=== PATIENT | female | born 1985 | race Caucasian/White ===

== ENCOUNTER 2016-11-12 12:34 | Emergency (ER) | payer OTHER ==
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
[2016-11-12 17:20] LABS: BILIRUBIN,URINE NEGATIVE (NEGATIVE)
[2016-11-12 17:28] LABS: HCG UR QUAL NEGATIVE; UA w/ MICROSCOPIC CHARGE YES
[2016-11-12 17:29] LABS: UR CULTURE IF IND NOT INDICATED; WBC,URINE 0-3 /HPF (0-5)
[2016-11-12 18:22] VITALS: BP 136/66
== END 2016-11-12 18:23 | disposition home or self-care (01) ==
LOC: ED 12:34
DX: T76.21XA Adult sexual abuse, suspected, initial encounter (principal); Z59.0 Homelessness
CPT/HCPCS: 81001; 81003; 81025; 87086; 87491; 87591; 99283

== ENCOUNTER 2017-01-07 13:30 | Outpatient (CLI) | payer MEDICAID | END 2017-01-07 13:31 | disposition critical access hospital (66) | LOC: EMS 13:30 | PROVIDERS: ATTEND Surgery | DX: S80.212A Abrasion, left knee, initial encounter (principal); S40.021A Contusion of right upper arm, initial encounter; Y09 Assault by unspecified means | CPT/HCPCS: A0425; A0429 ==

== ENCOUNTER 2017-03-12 14:55 | Outpatient (CLI) | payer MEDICAID | END 2017-03-12 14:56 | disposition critical access hospital (66) | LOC: EMS 14:55 | PROVIDERS: ATTEND Surgery | DX: R07.9 Chest pain, unspecified (principal); R11.0 Nausea | CPT/HCPCS: A0425; A0427 ==

== ENCOUNTER 2017-03-12 15:39 | Emergency (ER) | payer MEDICAID ==
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
[2017-03-12 16:30] VITALS: BP 133/79
[2017-03-12 16:56] LABS: HCG,QUALITATIVE BLOOD NEGATIVE
--- NOTE | 2017-03-12 17:51 | XRAY Report ---
EXAM: CHEST RADIOGRAPHY EXAM DATE: 03/12/2017 05:21 PM. CLINICAL HISTORY: Chest pain. COMPARISON: 01/07/2017. TECHNIQUE: 2 views. FINDINGS: Lungs/Pleura: Stable calcified granuloma, right upper lobe, otherwise no focal opacities evident. No pleural effusion. No pneumothorax. Normal volumes. Mediastinum: Heart and mediastinal contours are unremarkable. Other: No bony abnormalities identified. IMPRESSION: Stable right upper lobe calcified granuloma, otherwise unremarkable 2-view chest radiogra phy. [facility] Referring Provider Line: [phone] SITE ID: [id number]
== END 2017-03-12 18:16 | disposition home or self-care (01) ==
LOC: EDUNIT# → ED 15:39
DX: R07.9 Chest pain, unspecified (principal)
CPT/HCPCS: 36415; 71020; 84703; 93005; 99283; 99284

== ENCOUNTER 2017-03-20 19:29 | Outpatient (CLI) | payer MEDICAID | END 2017-03-20 19:30 | disposition EMS.NT | LOC: EMS 19:29 | PROVIDERS: ATTEND Surgery | DX: R68.84 Jaw pain (principal) ==

== ENCOUNTER 2017-07-31 19:18 | Outpatient (CLI) | payer MEDICAID | END 2017-07-31 19:19 | disposition EMS.NT | LOC: EMS 19:18 | PROVIDERS: ATTEND Surgery | DX: S61.214A Laceration without foreign body of right ring finger without damage to nail, initial encounter (principal); X99.8XXA Assault by other sharp object, initial encounter; Y92.59 Other trade areas as the place of occurrence of the external cause ==

== ENCOUNTER 2017-10-26 10:24 | Outpatient (CLI) | payer MEDICAID ==
--- NOTE | 2017-10-26 11:11 | XRAY Report ---
Procedure Date: 10/26/2017 Accession Number: [id number] / [id number] Procedure: XRN - Toe(s) LT CPT Code: FULL RESULT: EXAM: LEFT TOE RADIOGRAPHY EXAM DATE: 10/26/2017 10:49 AM. CLINICAL HISTORY: Painful toe. COMPARISON: None. TECHNIQUE: 3 views. FINDINGS: Bones: Normal. No fracture or bone lesion. Joints: Normal. No subluxations. Soft Tissues: Normal. No soft tissue swelling. IMPRESSION: Normal toe radiography. [facility]
== END 2017-10-26 10:25 | disposition home or self-care (01) ==
LOC: DI.N 10:24
PROVIDERS: ATTEND Nurse Practitioner
DX: M79.675 Pain in left toe(s) (principal)
CPT/HCPCS: 73660

== ENCOUNTER 2019-02-02 18:38 | Emergency (ER) | payer MEDICAID ==
[2019-02-02 18:48] VITALS: BP 140/90
--- NOTE | 2019-02-02 19:52 | XRAY Report ---
Reason: thumb injury Procedure Date: 02/02/2019 Accession Number: [id number] / [id number] Procedure: XR - Finger(s) LT CPT Code: Final Report FULL RESULT: EXAM: LEFT 1ST DIGIT RADIOGRAPHY EXAM DATE: 02/02/2019 07:28 PM. CLINICAL HISTORY: Thumb injury. COMPARISON: None. TECHNIQUE: 3 views. FINDINGS: Bones: No acute fracture. No suspicious osseous lesion. Joints: No significant joint space narrowing. No dislocation. Other: None. IMPRESSION: No acute osseous abnormality. [facility]
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
== END 2019-02-02 20:23 | disposition home or self-care (01) ==
LOC: ED 18:38
DX: S63.642A Sprain of metacarpophalangeal joint of left thumb, initial encounter (principal); X58.XXXA Exposure to other specified factors, initial encounter; Y93.89 Activity, other specified
CPT/HCPCS: 73140; 99281; 99283

== ENCOUNTER 2019-05-09 11:00 | Outpatient (CLI) | payer MEDICAID | END 2019-05-09 11:01 | disposition home or self-care (01) | LOC: DI.N 11:00 | PROVIDERS: ATTEND Family Medicine | DX: Z53.9 Procedure and treatment not carried out, unspecified reason (principal) ==

== ENCOUNTER 2019-05-24 07:10 | Outpatient (CLI) | payer MEDICAID | END 2019-05-24 07:11 | disposition critical access hospital (66) | LOC: EMS 07:10 | PROVIDERS: ATTEND Surgery | DX: R45.851 Suicidal ideations (principal) | CPT/HCPCS: A0425; A0429; A0999 ==

== ENCOUNTER 2019-05-24 07:25 | Emergency (ER) | payer MEDICAID ==
[2019-05-24] MEDS ORDERED: LORazepam 2 MG/ML VIAL IM STA ×4 (07:38→18:09)
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
[2019-05-24 08:07] LABS: BASOPHILS # (AUTO) 0.1 10^3/uL (0.0-0.1); EOSINOPHILS # (AUTO) 0.2 10^3/uL (0.0-0.7); EOSINOPHILS % (AUTO) 1.7 %; LYMPHOCYTES # (AUTO) 1.9 10^3/uL (1.5-3.5); LYMPHOCYTES % (AUTO) 19.3 %; MEAN CORPUSCULAR HEMOGLOBIN 28.7 pg (27.0-31.0); MEAN CORPUSCULAR VOLUME 86.9 fL (81.0-99.0); MEAN PLATELET VOLUME 9.9 fL (7.9-10.8); MONOCYTES # (AUTO) 0.8 10^3/uL (0.0-1.0); MONOCYTES % (AUTO) 8.5 %; NEUTROPHILS # (AUTO) 6.7 10^3/uL (1.5-6.6); NEUTROPHILS % (AUTO) 69.2 %; PLT - PLATELET COUNT 275 10^3/uL (130-450); RED BLOOD COUNT 4.88 10^6/uL (4.20-5.40); RED CELL DISTRIBUTION WIDTH 12.5 % (12.0-15.0); WHITE BLOOD COUNT 9.6 x10^3/uL (4.8-10.8)
[2019-05-24 08:15] LABS: ALBUMIN 4.1 g/dL (3.2-5.5); ALBUMIN/GLOBULIN RATIO 1.4 (1.0-2.2); ALKALINE PHOSPHATASE 35 IU/L (42-121); ALT ALANINE AMINOTRANSFERASE 12 IU/L (10-60); AST ASPARTATE AMINOTRANSFERASE 15 IU/L (10-42); BILIRUBIN,TOTAL 0.4 mg/dL (0.2-1.0); BUN - BLOOD UREA NITROGEN 7 mg/dL (6-20); CALCIUM 8.7 mg/dL (8.5-10.3); CARBON DIOXIDE - CO2 24 mmol/L (21-32); CHLORIDE 106 mmol/L (101-111); CREATININE 0.6 mg/dL (0.4-1.0); GFR - MDRD 117 (>89); GLUCOSE 105 mg/dL (70-100); LIPASE 23 U/L (22-51); SODIUM 140 mmol/L (135-145)
[2019-05-24] MEDS ORDERED: HALOPERIDOL 5 MG/ML VIAL IM STA ×3 (08:20→18:09)
[2019-05-24 11:11] LABS: MUDS CUTOFF CONCENTRATIONS CUTOFF CONC BELOW:
[2019-05-24 11:18] LABS: BILIRUBIN,URINE NEGATIVE (NEGATIVE); GLUCOSE, URINE (UA) NEGATIVE (NEGATIVE); KETONES,URINE (UA) NEGATIVE (NEGATIVE); LEUKOCYTE ESTERASE, URINE NEGATIVE (NEGATIVE); NITRITE,URINE NEGATIVE (NEGATIVE); OCCULT BLOOD,URINE LARGE (NEGATIVE); PH,URINE 8.5 PH (5.0-7.5); PROTEIN,URINE 30 mg/dL (NEGATIVE); UROBILINOGEN,URINE 0.2 (NORMAL) E.U./dL (NORMAL)
[2019-05-24 11:22] LABS: BACTERIA,URINE Few /HPF (None Seen); CLARITY,URINE BLOODY (CLEAR); HCG UR QUAL NEGATIVE; RBC,URINE TNTC /HPF (0-5); SQUAMOUS EPITHELIAL CELL,UR RARE Squamous (<= Few)
[2019-05-24 11:23] LABS: AMPHETAMINE SCREEN,URINE NEGATIVE (NEGATIVE); BENZODIAZEPINES SCREEN, URINE POSITIVE (NEGATIVE); COCAINE SCREEN URINE NEGATIVE (NEGATIVE); METHADONE SCREEN, URINE NEGATIVE (NEGATIVE); METHAMPHETAMINES SCREEN, URINE NEGATIVE (NEGATIVE); OPIATE SCREEN, URINE NEGATIVE (NEGATIVE); OXYCODONE SCREEN, URINE NEGATIVE (NEGATIVE); PROPOXYPHENE SCREEN, URINE NEGATIVE (NEGATIVE); TRICYCLIC ANTIDEPRESSANT,URINE NEGATIVE (NEGATIVE)
[2019-05-24 20:41] VITALS: BP 122/50
== END 2019-05-24 20:53 ==
LOC: EDUNIT# → ED 07:25
DX: R45.851 Suicidal ideations (principal); F20.9 Schizophrenia, unspecified; Z78.1 Physical restraint status
CPT/HCPCS: 36415; 80053; 80306; 80320; 81001; 81025; 83690; 84443; 85025; 93005; 96372; 99285; J2060; 81003; 87086

== ENCOUNTER 2019-05-31 00:09 | Outpatient (CLI) | payer MEDICAID | END 2019-05-31 00:10 | disposition critical access hospital (66) | LOC: EMS 00:09 | PROVIDERS: ATTEND Surgery | DX: R45.851 Suicidal ideations (principal) | CPT/HCPCS: A0425; A0429; A0999 ==

== ENCOUNTER 2019-05-31 00:22 | Emergency (ER) | payer MEDICAID ==
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
[2019-05-31] MEDS ORDERED: OLANZapine 10 MG VIAL IM STA (00:42)
[2019-05-31 01:53] LABS: BASOPHILS # (AUTO) 0.1 10^3/uL (0.0-0.1); BASOPHILS % (AUTO) 1.7 %; EOSINOPHILS # (AUTO) 0.2 10^3/uL (0.0-0.7); LYMPHOCYTES # (AUTO) 2.9 10^3/uL (1.5-3.5); LYMPHOCYTES % (AUTO) 48.8 %; MEAN CORPUSCULAR HEMOGLOBIN 29.3 pg (27.0-31.0); MEAN CORPUSCULAR HGB CONC 32.9 g/dL (32.0-36.0); MEAN PLATELET VOLUME 9.6 fL (7.9-10.8); MONOCYTES # (AUTO) 0.8 10^3/uL (0.0-1.0); MONOCYTES % (AUTO) 12.8 %; NEUTROPHILS % (AUTO) 33.5 %; PLT - PLATELET COUNT 213 10^3/uL (130-450); RED BLOOD COUNT 4.44 10^6/uL (4.20-5.40); RED CELL DISTRIBUTION WIDTH 12.7 % (12.0-15.0)
[2019-05-31 02:07] LABS: ACETAMINOPHEN < 10 ug/mL (10-30); ALBUMIN 3.8 g/dL (3.2-5.5); ALBUMIN/GLOBULIN RATIO 1.5 (1.0-2.2); ALKALINE PHOSPHATASE 31 IU/L (42-121); ALT ALANINE AMINOTRANSFERASE 14 IU/L (10-60); AST ASPARTATE AMINOTRANSFERASE 17 IU/L (10-42); BILIRUBIN,TOTAL 0.2 mg/dL (0.2-1.0); BUN - BLOOD UREA NITROGEN 10 mg/dL (6-20); CALCIUM 8.2 mg/dL (8.5-10.3); CARBON DIOXIDE - CO2 25 mmol/L (21-32); CHLORIDE 106 mmol/L (101-111); CREATININE 0.6 mg/dL (0.4-1.0); GFR - MDRD 117 (>89); GLUCOSE 101 mg/dL (70-100); LIPASE 23 U/L (22-51); SALICYLATE < 6.0 mg/dL; SODIUM 139 mmol/L (135-145); TOTAL PROTEIN 6.3 g/dL (6.7-8.2)
[2019-05-31 08:14] LABS: MUDS CUTOFF CONCENTRATIONS CUTOFF CONC BELOW:
[2019-05-31 08:32] LABS: BILIRUBIN,URINE NEGATIVE (NEGATIVE); GLUCOSE, URINE (UA) NEGATIVE (NEGATIVE); KETONES,URINE (UA) TRACE mg/dL (NEGATIVE); LEUKOCYTE ESTERASE, URINE NEGATIVE (NEGATIVE); NITRITE,URINE NEGATIVE (NEGATIVE); OCCULT BLOOD,URINE SMALL (NEGATIVE); PROTEIN,URINE NEGATIVE (NEGATIVE); UROBILINOGEN,URINE 0.2 (NORMAL) E.U./dL (NORMAL)
[2019-05-31 08:38] LABS: CLARITY,URINE HAZY (CLEAR)
[2019-05-31 08:45] LABS: AMPHETAMINE SCREEN,URINE POSITIVE (NEGATIVE); METHAMPHETAMINES SCREEN, URINE POSITIVE (NEGATIVE)
[2019-05-31 08:46] LABS: BENZODIAZEPINES SCREEN, URINE NEGATIVE (NEGATIVE); COCAINE SCREEN URINE NEGATIVE (NEGATIVE); METHADONE SCREEN, URINE NEGATIVE (NEGATIVE); OPIATE SCREEN, URINE NEGATIVE (NEGATIVE); OXYCODONE SCREEN, URINE NEGATIVE (NEGATIVE); PROPOXYPHENE SCREEN, URINE NEGATIVE (NEGATIVE); TRICYCLIC ANTIDEPRESSANT,URINE POSITIVE (NEGATIVE)
[2019-05-31 08:55] LABS: BACTERIA,URINE Few /HPF (None Seen); MUCUS,URINE Few Strands; RBC,URINE 0-5 /HPF (0-5); SQUAMOUS EPITHELIAL CELL,UR MOD Squamous (<= Few)
[2019-05-31 09:24] VITALS: BP 102/52
[2019-05-31 12:09] LABS: HCG UR QUAL NEGATIVE
== END 2019-05-31 19:36 ==
LOC: EDUNIT# → ED 00:22
DX: F29 Unspecified psychosis not due to a substance or known physiological condition (principal); R45.851 Suicidal ideations
CPT/HCPCS: 36415; 80053; 80306; 80307; 80320; 80329; 81001; 81003; 81025; 83690; 85025; 87086; 93005; 96372; 99281; 99284

== ENCOUNTER 2019-11-08 06:46 | Outpatient (CLI) | payer MEDICAID | END 2019-11-08 06:47 | disposition critical access hospital (66) | LOC: EMS 06:46 | PROVIDERS: ATTEND Surgery | DX: O21.9 Vomiting of pregnancy, unspecified (principal) | CPT/HCPCS: A0425; A0427; A0999 ==

== ENCOUNTER 2019-11-08 07:03 | Emergency (ER) | payer MEDICAID ==
[2019-11-08 07:12] VITALS: BP 158/83
[2019-11-08] MEDS ORDERED: SODIUM CHLORIDE 0.9% 1,000 ML IV STA ×2 (07:57→10:15)
[2019-11-08] MEDS ORDERED: ONDANSETRON 4 MG/2 ML VIAL IVP STA (07:57)
[2019-11-08 08:17] LABS: BASOPHILS # (AUTO) 0.1 10^3/uL (0.0-0.1); BASOPHILS % (AUTO) 0.5 %; EOSINOPHILS % (AUTO) 0.1 %; HGB - HEMOGLOBIN 13.4 g/dL (12.0-16.0); LYMPHOCYTES # (AUTO) 1.8 10^3/uL (1.5-3.5); MEAN CORPUSCULAR HEMOGLOBIN 30.2 pg (27.0-31.0); MEAN CORPUSCULAR HGB CONC 34.8 g/dL (32.0-36.0); MEAN CORPUSCULAR VOLUME 86.9 fL (81.0-99.0); MEAN PLATELET VOLUME 9.7 fL (7.9-10.8); MONOCYTES # (AUTO) 0.6 10^3/uL (0.0-1.0); MONOCYTES % (AUTO) 3.3 %; NEUTROPHILS % (AUTO) 84.5 %; PLT - PLATELET COUNT 249 10^3/uL (130-450); RED BLOOD COUNT 4.43 10^6/uL (4.20-5.40); RED CELL DISTRIBUTION WIDTH 13.3 % (12.0-15.0); WHITE BLOOD COUNT 16.5 x10^3/uL (4.8-10.8)
[2019-11-08 08:32] LABS: ALBUMIN/GLOBULIN RATIO 1.3 (1.0-2.2); ALKALINE PHOSPHATASE 42 IU/L (42-121); ALT ALANINE AMINOTRANSFERASE 11 IU/L (10-60); AST ASPARTATE AMINOTRANSFERASE 15 IU/L (10-42); BILIRUBIN,TOTAL 0.6 mg/dL (0.2-1.0); BUN - BLOOD UREA NITROGEN 5 mg/dL (6-20); CALCIUM 8.8 mg/dL (8.5-10.3); CARBON DIOXIDE - CO2 22 mmol/L (21-32); CHLORIDE 103 mmol/L (101-111); CREATININE 0.5 mg/dL (0.4-1.0); GLUCOSE 130 mg/dL (70-100); LIPASE 27 U/L (22-51); SODIUM 135 mmol/L (135-145); TOTAL PROTEIN 7.2 g/dL (6.7-8.2)
[2019-11-08 11:40] LABS: MUDS CUTOFF CONCENTRATIONS CUTOFF CONC BELOW:
[2019-11-08 11:50] LABS: BILIRUBIN,URINE NEGATIVE (NEGATIVE); GLUCOSE, URINE (UA) NEGATIVE (NEGATIVE); KETONES,URINE (UA) >=80 mg/dL (NEGATIVE); LEUKOCYTE ESTERASE, URINE NEGATIVE (NEGATIVE); NITRITE,URINE NEGATIVE (NEGATIVE); OCCULT BLOOD,URINE TRACE-INTA (NEGATIVE); PH,URINE 6.5 PH (5.0-7.5); PROTEIN,URINE TRACE mg/dL (NEGATIVE); UROBILINOGEN,URINE 0.2 (NORMAL) E.U./dL (NORMAL)
[2019-11-08 11:53] LABS: CLARITY,URINE CLEAR (CLEAR)
[2019-11-08 11:58] LABS: AMPHETAMINE SCREEN,URINE NEGATIVE (NEGATIVE); BENZODIAZEPINES SCREEN, URINE NEGATIVE (NEGATIVE); COCAINE SCREEN URINE NEGATIVE (NEGATIVE); METHADONE SCREEN, URINE NEGATIVE (NEGATIVE); METHAMPHETAMINES SCREEN, URINE NEGATIVE (NEGATIVE); OPIATE SCREEN, URINE NEGATIVE (NEGATIVE); OXYCODONE SCREEN, URINE NEGATIVE (NEGATIVE); PROPOXYPHENE SCREEN, URINE NEGATIVE (NEGATIVE); TRICYCLIC ANTIDEPRESSANT,URINE NEGATIVE (NEGATIVE)
--- NOTE | 2019-11-08 12:34 | ED Physician Documentation ---
PD HPI FEMALE - Stated complaint Stated Complaint: N/V/ABD PAIN - Chief complaint Chief Complaint: Abd Pain - History obtained from History obtained from: Patient - History of Present Illness Timing - onset: Enter time (399), Today Timing - duration: Hours Timing - details: Gradual onset, Still present Associated symptoms: Abdominal pain Contributing factors: Similar symptoms before: Diagnosis (morning sickness) Recently seen: Not recently seen - Additional information Additional information: 34-year-old female schizophrenic homeless has developed nausea and vomiting and comes to the emergency department for evaluation and treatment. 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 DEPARTMENT: None : None HEENT: None Psych: Depression, Anxiety, Schizophrenia, Post traumatic stress disorder Musculoskeletal: None Derm: None - Past Surgical History Past Surgical History: No - Present Medications Home Medications: Ambulatory Orders Medication Instructions Recorded Confirmed Ondansetron Odt [Zofran] 4 mg TL Q6H PRN #10 tablet 11/08/19 - Allergies Allergies/Adverse Reactions: Allergies Allergy/AdvReac Type Severity Reaction Status Date / Time erythromycin base Allergy Unknown Verified 02/02/19 18:45 loratadine Allergy Unknown Verified 02/02/19 18:45 - Social History Does the pt smoke?: No Smoking Status: Never smoker Does the pt drink ETOH?: Yes Does the pt have substance abuse?: Yes PD ED PE NORMAL - Vitals Vital signs reviewed: Yes (Hypertensive) - General General: Alert and oriented X 3, Well developed/nourished, Other (The patient is whining and nauseous.) - HEENT HEENT: Atraumatic, PERRL, EOMI - Neck Neck: Supple, no meningeal sign - Cardiac Cardiac: RRR, No murmur - Respiratory Respiratory: No respiratory distress, Clear bilaterally - Abdomen Abdomen: Soft, Non tender - Back Back: No CVA TTP, No spinal TTP - Derm Derm: Normal color, Warm and dry, No rash - Extremities Extremities: No deformity, No edema, No calf tenderness / cord - Neuro Neuro: Alert and oriented X 3, 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 2-12 intact, No motor deficit, No sensory deficit, Normal speech Eye Opening: Spontaneous Motor: Obeys Commands Verbal: Oriented GCS Score: 15 - Psych Psych: Normal mood, Normal affect Results - Vitals Vitals: Vital Signs - 24 hr 11/08/19 07:09 Temperature 36.3 C L Heart Rate 64 Respiratory 22 Rate Blood Pressure 158/83 H O2 Saturation 100 Oxygen O2 Source Room air - Labs Labs: Laboratory Tests 11/08/19 11/08/19 11/08/19 08:10 08:10 08:10 WBC 16.5 H RBC 4.43 Hgb 13.4 Hct 38.5 MCV 86.9 MCH 30.2 MCHC 34.8 RDW 13.3 Plt Count 249 MPV 9.7 Neut # (Auto) 14.0 H Lymph # (Auto) 1.8 Young # (Auto) 0.6 Eos # (Auto) 0.0 Baso # (Auto) 0.1 Absolute Nucleated RBC 0.00 Nucleated RBC % 0.0 Sodium 135 Potassium 3.3 L Chloride 103 Carbon Dioxide 22 Anion Gap 10.0 BUN 5 L Creatinine 0.5 Estimated GFR (MDRD) 143 Glucose 130 H Lactic Acid 1.5 Calcium 8.8 Total Bilirubin 0.6 AST 15 ALT 11 Alkaline Phosphatase 42 Total Protein 7.2 Albumin 4.0 Globulin 3.2 Albumin/Globulin Ratio 1.3 Lipase 27 Urine Color Urine Clarity Urine pH Ur Specific [place] Urine Protein Urine Glucose (UA) Urine Ketones Urine Occult Blood Urine Nitrite Urine Bilirubin Urine Urobilinogen Ur Leukocyte Esterase Ur Microscopic Review Urine Culture Comments Urine Opiates Screen Ur Oxycodone Screen Urine Methadone Screen Ur Propoxyphene Screen Ur Barbiturates Screen Ur Tricyclics Screen Ur Phencyclidine Scrn Ur Amphetamine Screen U Methamphetamines Scrn U Benzodiazepines Scrn Urine Cocaine Screen U Cannabinoids Screen Ethyl Alcohol < 5.0 11/08/19 10:45 WBC RBC Hgb Hct MCV MCH MCHC RDW Plt Count MPV Neut # (Auto) Lymph # (Auto) Young # (Auto) Eos # (Auto) Baso # (Auto) Absolute Nucleated RBC Nucleated RBC % Sodium Potassium Chloride Carbon Dioxide Anion Gap BUN Creatinine Estimated GFR (MDRD) Glucose Lactic Acid Calcium Total Bilirubin AST ALT Alkaline Phosphatase Total Protein Albumin Globulin Albumin/Globulin Ratio Lipase Urine Color YELLOW Urine Clarity CLEAR Urine pH 6.5 Ur Specific [place] 1.025 Urine Protein TRACE Urine Glucose (UA) NEGATIVE Urine Ketones >=80 H Urine Occult Blood TRACE-INTA Urine Nitrite NEGATIVE Urine Bilirubin NEGATIVE Urine Urobilinogen 0.2 (NORMAL) Ur Leukocyte Esterase NEGATIVE Ur Microscopic Review NOT INDICATED Urine Culture Comments NOT INDICATED Urine Opiates Screen NEGATIVE Ur Oxycodone Screen NEGATIVE Urine Methadone Screen NEGATIVE Ur Propoxyphene Screen NEGATIVE Ur Barbiturates Screen NEGATIVE Ur Tricyclics Screen NEGATIVE Ur Phencyclidine Scrn NEGATIVE Ur Amphetamine Screen NEGATIVE U Methamphetamines Scrn NEGATIVE U Benzodiazepines Scrn NEGATIVE Urine Cocaine Screen NEGATIVE U Cannabinoids Screen POSITIVE H Ethyl Alcohol Procedures - Bedside sono Bedside sono by EMP: With use of bedside ultrasound the fetus is imaged with a heart rate of 154. PD MEDICAL DECISION MAKING - ED course Complexity details: reviewed old records, reviewed results, re-evaluated patient, considered differential, d/w patient ED course: 34-year-old schizophrenic homeless female with morning sickness has marked improvement with Zofran and intravenous fluid. She arrives not feeling well and leaves feeling much improved and we did not find any evidence of alcohol or amphetamine in her system. She appreciated the comment that we found her clean. Departure - Departure Disposition: 01 Home, Self Care Clinical Impression: Morning sickness Condition: Stable Instructions: ED Preg Morning Sickness Follow-Up: SHREYAS AVALOS MD [Primary Care Provider] - Milagros Blanc LMW [Physician No Access] - Prescriptions: Ondansetron Odt [Zofran] 4 mg TL Q6H PRN #10 tablet PRN Reason: Nausea / Vomiting Discharge Date/Time: 11/08/19 12:50
== END 2019-11-08 12:50 | disposition home or self-care (01) ==
LOC: EDUNIT# → ED 07:03
DX: O21.9 Vomiting of pregnancy, unspecified (principal); O99.340 Other mental disorders complicating pregnancy, unspecified trimester; F20.9 Schizophrenia, unspecified; O99.89 Other specified diseases and conditions complicating pregnancy, childbirth and the puerperium; Z59.0 Homelessness; Z3A.00 Weeks of gestation of pregnancy not specified
CPT/HCPCS: 36415; 80053; 80306; 80320; 81001; 81003; 83605; 83690; 85025; 87086; 96374; 99284

== ENCOUNTER 2020-04-08 13:46 | Outpatient (CLI) | payer MEDICAID ==
[2020-04-08 14:01] VITALS: BP 129/73
[2020-04-08] MEDS ORDERED: RHO(D) IMMUNE GLOBULIN 300 MCG SYRINGE IM ONE (16:01)
[2020-04-08 16:25] LABS: MUDS CUTOFF CONCENTRATIONS CUTOFF CONC BELOW:
[2020-04-08 16:26] LABS: HGB - HEMOGLOBIN 12.5 g/dL (12.0-16.0); MEAN CORPUSCULAR HEMOGLOBIN 30.2 pg (27.0-31.0); MEAN CORPUSCULAR HGB CONC 33.5 g/dL (32.0-36.0); MEAN CORPUSCULAR VOLUME 90.1 fL (81.0-99.0); MEAN PLATELET VOLUME 10.5 fL (7.9-10.8); RED BLOOD COUNT 4.14 10^6/uL (4.20-5.40); RED CELL DISTRIBUTION WIDTH 13.7 % (12.0-15.0); WHITE BLOOD COUNT 14.3 x10^3/uL (4.8-10.8)
[2020-04-08 16:39] LABS: AMPHETAMINE SCREEN,URINE NEGATIVE (NEGATIVE); BENZODIAZEPINES SCREEN, URINE NEGATIVE (NEGATIVE); COCAINE SCREEN URINE NEGATIVE (NEGATIVE); METHADONE SCREEN, URINE NEGATIVE (NEGATIVE); METHAMPHETAMINES SCREEN, URINE NEGATIVE (NEGATIVE); OPIATE SCREEN, URINE NEGATIVE (NEGATIVE); OXYCODONE SCREEN, URINE NEGATIVE (NEGATIVE); PROPOXYPHENE SCREEN, URINE NEGATIVE (NEGATIVE); TRICYCLIC ANTIDEPRESSANT,URINE NEGATIVE (NEGATIVE)
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
[2020-04-08 18:47] LABS: HEMOGLOBIN A1c% 5.1 % (4.27-6.07)
[2020-04-08 21:33] LABS: TRICHOMONAS VAGINALIS DNA NEGATIVE (NEGATIVE)
[2020-04-09 12:38] LABS: HEPATITIS C ANTIBODY NON-REACTIVE (NON-REACTIVE)
[2020-04-09 14:57] LABS: HIV AG/AB 4TH GEN NON-REACTIVE (NON-REACTIVE)
== END 2020-04-08 17:40 | disposition home or self-care (01) ==
LOC: WFO 13:46 → FBP 13:48 → WFO 17:40
PROVIDERS: ATTEND Nurse Practitioner Obstetrics & Gynecology
DX: O21.2 Late vomiting of pregnancy (principal); O09.33 Supervision of pregnancy with insufficient antenatal care, third trimester; O99.333 Smoking (tobacco) complicating pregnancy, third trimester; F17.210 Nicotine dependence, cigarettes, uncomplicated; O99.323 Drug use complicating pregnancy, third trimester; F12.90 Cannabis use, unspecified, uncomplicated; O26.893 Other specified pregnancy related conditions, third trimester; Z67.91 Unspecified blood type, Rh negative; Z59.0 Homelessness; Z91.410 Personal history of adult physical and sexual abuse; Z3A.34 34 weeks gestation of pregnancy
CPT/HCPCS: 36415; 80306; 81599; 83036; 85027; 86704; 86762; 86780; 86787; 86803; 86850; 86900; 86901; 87389; 87491; 87591; 87661; 96372; 99213

== ENCOUNTER 2020-04-24 08:00 | Outpatient (CLI) | payer MEDICAID | END 2020-04-24 23:59 | disposition home or self-care (01) | LOC: LAB 08:00 | PROVIDERS: ATTEND Nurse Practitioner Obstetrics & Gynecology | DX: Z36.85 Encounter for antenatal screening for Streptococcus B (principal); Z36.89 Encounter for other specified antenatal screening | CPT/HCPCS: 36415; 82950; 87797 ==

== ENCOUNTER 2020-04-26 08:00 | Outpatient (CLI) | payer MEDICAID | END 2020-04-26 08:01 | disposition home or self-care (01) | LOC: LAB 08:00 | PROVIDERS: ATTEND Nurse Practitioner Obstetrics & Gynecology | DX: O99.810 Abnormal glucose complicating pregnancy (principal) | CPT/HCPCS: 36415; 82951; 82952 ==